=== PATIENT | female | born 1980 | race African-American/Black ===

== ENCOUNTER 2022-08-22 11:01 | Outpatient (CLI) | payer OTHER, SELFPAY | END 2022-08-22 11:02 | disposition home or self-care (01) | LOC: ANHAUDIO 11:02 | PROVIDERS: PCP Otolaryngology; Visit Provider Otolaryngology | DX: H90.5 Unspecified sensorineural hearing loss (principal) | CPT/HCPCS: 92557; 92567; 92587 ==